=== PATIENT | male | born 1965 | race Caucasian/White ===

== ENCOUNTER → 2020-08-08 | Outpatient (CLI) | payer BC ==
--- NOTE | 2020-08-10 19:22 | MR ---
EXAMINATION TYPE: MR shoulder RT wo con DATE OF EXAM: 08/08/2020 COMPARISON: None HISTORY: Right shoulder pain, decreased ROM x 6 mos, no trauma TECHNIQUE: Multiplanar, multisequence imaging of the right shoulder is performed without contrast. FINDINGS: Rotator Cuff: Increased signal is at the insertion site of the supraspinatus tendon. The tendon appea rs to be transversed with hyperintense signal. A few fibers remain adjacent suggesting near complete tear of the supraspinatus tendon. Supraspinatus muscle appears intact without retraction or atrophy. Subscapularis and infraspinatus muscles likewise appear normal. Fluid surrounds the infraspinatus tendon. Fluid is identified each side of the subscapularis tendon. This could be related to the rotator cuff perforation or additional tendinosis. Acromioclavicular Joint: Hypertrophy with some inferior spurring which can contribute to impingement syndrome some mild downward spurring of the acromion may be present. Glenohumeral Joint: Humeral head articulates with the glenoid. There is some slight subluxation super ior in relation to the glenoid. Labrum: Anterior glenoid appears small. Anterior superior glenoid likewise appears small. Biceps Tendon: The long head of biceps is in normal location within bicipital groove. Large amount fl uid surrounds the long head of the biceps tendon. Bone marrow signal: Abnormal signal is near the insertion of the supraspinatus tendon. Other: Small to moderate joint effusion is present. IMPRESSION: 1. Signal transversing the distal supraspinatus tendon at its insertion site. Retraction however is n ot evident suggesting incomplete tear of the supraspinatus tendon. 2. Tendinosis of the subscapularis and infraspinatus and long head of the biceps tendon is present. 3. Small to moderate joint effusion. 4. Mild acromioclavicular joint hypertrophy. 5. Anterior and anterior superior glenoid labral degenerative changes.
== END | disposition home or self-care (01) ==
LOC: RADMRIMAIN 20:02
PROVIDERS: ATTEND Orthopaedic Surgery
DX: M25.411 Effusion, right shoulder (principal); M89.311 Hypertrophy of bone, right shoulder; M67.813 Other specified disorders of tendon, right shoulder